=== PATIENT | female | born 1990 | race African-American/Black ===

== ENCOUNTER 2019-02-28 00:14 | Observation (INO) | payer MEDICAID ==
[~2019-02-28] VITALS: Ht 165.1 cm; Wt 79.0 kg
[2019-02-28 01:01] LABS: CLARITY URINE CLEAR (CLEAR); COLOR URINE YELLOW (YELLOW); KETONES URINE 1+ (NEGATIVE); LEUKOCYTE ESTERASE URINE NEGATIVE (NEGATIVE); NITRITE URINE NEGATIVE (NEGATIVE); OCCULT BLOOD URINE NEGATIVE (NEGATIVE); PROTEIN URINE NEGATIVE (NEGATIVE); SPECIFIC GRAVITY URINE 1.009 (1.005-1.030); UROBILINOGEN URINE 0.2 E.U./dL (0.2-1.0)
[2019-02-28 01:58] VITALS: BP 109/68
[2019-02-28] MEDS ORDERED: FOLI-43 PO (03:46)
[2019-02-28] MEDS ORDERED: FERR325T6 PO (03:46)
[2019-02-28] MEDS ORDERED: PNV1TABL76 PO (03:46)
[2019-04-23] MEDS ORDERED: DOCU-138 PO (07:53)
== END 2019-02-28 03:45 | disposition home or self-care (01) ==
LOC: ER 00:14 → 8 EST LDRP 02:08
PROVIDERS: ADMIT Obstetrics & Gynecology; ATTEND Obstetrics & Gynecology
DX: O99.513 Diseases of the respiratory system complicating pregnancy, third trimester (principal); J11.1 Influenza due to unidentified influenza virus with other respiratory manifestations; Z3A.30 30 weeks gestation of pregnancy
CPT/HCPCS: 81003; 87804; 99281; G0378